=== PATIENT | male | born 1990 | race African-American/Black ===

== ENCOUNTER 2021-11-17 09:00 | Emergency (ER) | payer BC ==
[~2021-11-17] VITALS: Ht 182.9 cm; Wt 90.3 kg
[2021-11-17 09:14] VITALS: BP 132/74
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
--- NOTE | 2021-11-17 10:28 | NUR ---
RAD at bedside
--- NOTE | 2021-11-17 10:40 | NUR ---
PROVIDED CRUTCHES TO PATIENT ADJUSTED TO PROPER HEIGHT. VERBAL INSTRUCTIONS GIVEN FOR PROPER CRUTCH USE; PATIENT SUCCESSFULLY DEMONSTRATED SAFE USE OF CRUTCHES.
[2021-11-17 11:12] VITALS: BP 124/71
[2021-11-17] MEDS ORDERED: NAPR-54 PO (11:42)
--- NOTE | 2021-11-17 11:49 | NUR ---
Patient discharged with v/s stable. Written and verbal after care instructions given and explained. Patient alert, oriented and verbalized understanding of instructions. Ambulatory via crutches with steady gait. All questions addressed prior to discharge. ID band removed. Patient advised to follow up with PMD. Rx of Naproxen given. Patient educated on indication of medication including possible reaction and side effects. Opportunity to ask questions provided and answered.
== END 2021-11-17 11:49 | disposition home or self-care (01) ==
LOC: MED 09:00
DX: S83.91XA Sprain of unspecified site of right knee, initial encounter (principal); F17.200 Nicotine dependence, unspecified, uncomplicated; Z79.1 Long term (current) use of non-steroidal anti-inflammatories (NSAID); X50.1XXA Overexertion from prolonged static or awkward postures, initial encounter; Y93.89 Activity, other specified; Y92.89 Other specified places as the place of occurrence of the external cause; Y99.8 Other external cause status
CPT/HCPCS: 73562; 73590; 99284